=== PATIENT | female | born 1945 | race Caucasian/White ===

== ENCOUNTER 2018-11-29 11:44 | Inpatient (IN) ==
[2018-11-29] MEDS ORDERED: Tetanus/Diphtheria Toxoid Adult Vaccine Inj 0.5 ML Vial IM ONE (11:54)
--- NOTE | 2018-11-29 12:31 | ED ---
HPI General Chief Complaint: Fall Stated Complaint: fall/evac Time Seen by Provider: 11/29/18 11:51 Source: EMS Mode of arrival: EMS Limitations: no limitations History of Present Illness MD complaint: Reports fall Onset (ago): minute(s) Fall from: standing Fall witnessed: no Place fall occurred: street Loss of consciousness: yes Prolonged down time: no Symptoms prior to fall: Reports none Context: Reports other (Unknown circumstances) Location of injury: Reports head Associated symptoms (after fall): Reports other Related Data Home Medications Medication Instructions Recorded Confirmed citalopram [Celexa] 10 mg PO QPM 11/29/18 11/29/18 fluticasone [Flonase Allergy 1 spray INTRANASAL DAILY 11/29/18 11/29/18 Relief] levothyroxine 75 mcg PO DAILY 11/29/18 11/29/18 montelukast [Singulair] 10 mg PO QPM 11/29/18 11/29/18 omeprazole 40 mg PO BID 11/29/18 11/29/18 Allergies Allergy/AdvReac Type Severity Reaction Status Date / Time Penicillins Allergy Anaphylaxis Verified 11/29/18 11:50 Review of Systems ROS: all other systems reviewed are negative [facility] Medical History Medical History Hypothyroidism (Acute) Surgical History Surgical History H/O breast biopsy (Acute) Social History Social History Substance History: No History of Abuse Second Hand Smoke Exposure: No Smoking Status: Never smoker How Often Do You Have a Drink Containing Alcohol: Monthly or less Recent Travel in [facility] within the Last 8 Weeks: No Recent Out of Country Travel within the Last 8 Weeks: No Immunization History Tetanus Immunization: >5 Years Exam Const General: cooperative, healthy appearing and comfortable Orientation: alert, awake and oriented x3 HENMT Head: normocephalic and other (Large hematoma on the left forehead. She has some dried blood streaked across her forehead and face.) Eyes Alignment and Position: alignment normal Conjunctivae: conjunctivae normal Sclera: sclerae normal EOM: EOM intact bilaterally Neck Neck: normal visual inspection and full ROM Chest Chest: normal inspection of the chest Resp Effort & Inspection: normal respiratory effort and able to speak in complete sentences Back/Spine/Pelvis Cervical Spine: cervical ROM normal Thoracic/Lumbar Spine: thoraco-lumbar ROM normal Skin General: turgor normal and dry skin Neuro General: alert, awake, oriented x3, moves all extremities and CN's II-XI intact bilaterally Extrem General: normal to inspection and full ROM Psych Appearance: grossly normal Mental Status: mental status grossly normal Speech and Movement: speech and movement normal Mood: congruent mood Affect: normal affect Attitude: cooperative Thought Process: normal Thought Content: normal Judgment: judgment good Course Initial Documented Vital Signs Temperature 99.0 F 11/29/18 11:50 Pulse Rate 63 11/29/18 11:50 Respiratory Rate 18 11/29/18 11:50 Blood Pressure 168/89 H 11/29/18 11:50 Pulse Oximetry 95 11/29/18 11:50 Last Documented Vital Signs Temperature 99.0 F 11/29/18 11:50 Pulse Rate 63 11/29/18 11:50 Respiratory Rate 18 11/29/18 11:50 Blood Pressure 168/89 H 11/29/18 11:50 Pulse Oximetry 95 11/29/18 11:50 Critical Care Time Critical Care Time: Yes Total Critical Care Time: 30 Attestation: Time to perform other separately billable procedures was not included in the critical care time. My time did not include minutes spent treating any other patients simultaneously or on activities that did not directly contribute to the patient's treatment. The services I provided to this patient were to treat and/or prevent clinically significant deterioration due to a head injury with subarachnoid and intraparenchymal hemorrhage I provided critical care services requiring my management, as noted below: Chart data review, documentation time, medication orders and management, vital sign assessments/reviewing monitor data, ordering and reviewing lab tests, ordering and interpreting/reviewing x-rays and diagnostic studies, care of the patient and discussion of the patient with the admitting physicians Medical Decision Making MDM Narrative Medical decision making narrative: This patient presents to [facility] after suffering an obvious head injury. We do not know the circumstances of the fall. She was found outside with an injury to the left side of her forehead. She had a positive loss of consciousness. She has associated amnesia. She does not know the date of her last tetanus shot. The patient is now awake and alert and fully oriented. Her tetanus has been updated. A CT of her head and neck has been ordered. CT of the head does show subarachnoid and intraparenchymal blood. I have discussed the case with the neurosurgeon, Dr. Perera. He has reviewed the films. He has asked that I admit the patient to the trauma service. Medical Screen Exam Complete: Yes Emergency Medical Condition: Yes Differential Diagnosis Differential Diagnosis: My differential diagnosis of head trauma includes but is not limited to scalp contusion, concussion, intracerebral hemorrhage. Imaging Data Radiologist's impression: Cervical Spine CT 11/29/18 11:54 CONCLUSION: 1. No evidence of fracture. Diffuse degenerative changes. Head CT 11/29/18 11:54 CONCLUSION: 1. Abnormal exam with multiple areas of subarachnoid hemorrhage as noted above as well as intraparenchymal hemorrhage identified within the right temporal lobe. Currently no evidence of mass effect or midline shift. Short interval follow-up is recommended to evaluate for possible progression. No skull fracture seen. . . Discharge Plan Discharge Disposition Patient Disposition: ED Admit(ED Internal Use Only) Discharge Order Discharge Orders: ED Use Only Admit Order (Routine); Ordered 11/29/18 Ordered By: Chloé Shetty Discharge Details Diagnosis: Subarachnoid hemorrhage, Acute intracerebral hemorrhage Physicians Team ED Provider: Chloé Shetty Rxs /Orders / Referrals /Forms Prescriptions: No Action citalopram [Celexa] 10 mg Tablet 10 mg PO QPM RF: 0 levothyroxine 75 mcg Tablet 75 mcg PO DAILY RF: 0 omeprazole 40 mg Capsule,Delayed Release(Dr/Ec) 40 mg PO BID RF: 0 montelukast [Singulair] 10 mg Tablet 10 mg PO QPM RF: 0 fluticasone [Flonase Allergy Relief] 50 mcg/actuation [place],Suspension 1 spray INTRANASAL DAILY RF: 0 Discharge Interventions Interventions: Vital Signs Last Done: 11/29/18 12:02 Status ED Status: With Doctor
--- NOTE | 2018-11-29 12:48 | CT ---
EXAM DATE: 11/29/2018 12:43 PM EST AGE/SEX: 73 years / Female INDICATIONS: Head injury. Post fall. Trauma. CLINICAL DATA: This is the patient's initial encounter. Patient reports that signs and symptoms have been present for 1 day and indicates a pain score of 5/10. MEDICAL/SURGICAL HISTORY: . 0 . 0 RADIATION DOSE: 12.4 CTDI (mGy) COMPARISON: No prior exams available for comparison. TECHNIQUE: Contiguous axial images were obtained using helical multirow detector technique. The vol umetric data was post-processed with multiplanar reconstruction in oblique axial, sagittal, and coron al planes. Using automated exposure control and adjustment of the mA and/or kV according to patient s ize, radiation dose was kept as low as reasonably achievable to obtain optimal diagnostic quality aram ges. DICOM format image data is available electronically for review and comparison. FINDINGS: Vertebrae: Vertebral bodies are intact without evidence of fracture. Vertebral height is maintained. Alignment: There is slight retrolisthesis of C3 on C4 and again at C4 on C5. Degenerative changes are seen throughout the cervical spine within the region of the facet joints and uncovertebral joints. Multiple levels of neural foraminal stenosis. No significant spinal canal sten osis. CONCLUSION: 1. No evidence of fracture. Diffuse degenerative changes. Electronically signed by: Edith Shepard MD Board Certified Radiologist 11/29/2018 12:46 PM EST
--- NOTE | 2018-11-29 12:51 | CT ---
EXAM DATE: 11/29/2018 12:43 PM EST AGE/SEX: 73 years / Female INDICATIONS: Head injury. Post fall. Trauma. CLINICAL DATA: This is the patient's initial encounter. Patient reports that signs and symptoms have been present for 1 day and indicates a pain score of 5/10. MEDICAL/SURGICAL HISTORY: . 0 . 0 RADIATION DOSE: 56.35 CTDI (mGy) COMPARISON: No prior exams available for comparison. TECHNIQUE: CT of the head without contrast. Using automated exposure control and adjustment of the mA and/or kV according to patient size, radiation dose was kept as low as reasonably achievable to ob tain optimal diagnostic quality images. DICOM format image data is available electronically for revi ew and comparison. FINDINGS: Cerebrum: The cerebrum is significant for multiple areas of curvilinear subarachnoid high attenuatio n consistent with hemorrhage. This is seen within the right frontal lobe, left frontal lobe, diffusel y within the left temporal and parietal lobe. There is an area of intraparenchymal hemorrhage identif ied within the right temporal lobe. No evidence of mass effect or midline shift. Posterior Fossa: The cerebellum and brainstem are intact. The 4th ventricle is midline. The cerebe llopontine angle is unremarkable. Extracranial: Focal soft tissue edema and hemorrhage overlying the left frontal lobe. Skull: The calvaria is intact. No evidence of skull fracture. CONCLUSION: 1. Abnormal exam with multiple areas of subarachnoid hemorrhage as noted above as well as intraparen chymal hemorrhage identified within the right temporal lobe. Currently no evidence of mass effect or midline shift. Short interval follow-up is recommended to evaluate for possible progression. No skull fracture seen. . . Electronically signed by: Edith Shepard MD Board Certified Radiologist 11/29/2018 12:49 PM EST
[2018-11-29] MEDS ORDERED: Acetaminophen 325 MG Tablet PO PRN (13:34)
[2018-11-29] MEDS ORDERED: Naloxone Inj 0.4 MG/ML Vial IV.PUSH PRN (13:34)
[2018-11-29] MEDS ORDERED: Bisacodyl 10 MG Supp RECTAL PRN (13:34)
[2018-11-29] MEDS ORDERED: Post-op Orders (for Pharmacy) OTHER ONE (13:34)
--- NOTE | 2018-11-29 15:43 | P.CONNS ---
History of Present Illness Service: Neurosurgery Consult date: 11/29/18 Requesting Physician: Luisa Mora Reason for Consult: TBI Primary Care Provider: Sanjana Knox Chief Complaint: SAH from fall History of Present Illness: 73yo F who was leaving a friend's garage sale today and apparently had an unwitnessed fall. She does not remember falling and is amnestic until waking up here in the Emergency Department. She had no known seizure, etc. Other than pain from striking her left frontal region, she has no complaints at present. She had a CT Head which revealed some scattered subarachnoid hemorrhage. Neurosurgery asked to assess. [facility] - History History Provided By: Patient - Medical History Medical History: Medical History (Last Reviewed 11/29/18 @ 12:28 by Chloé Shetty) Hypothyroidism - Surgical History Surgical History: Surgical History (Last Reviewed 11/29/18 @ 12:28 by Chloé Shetty) H/O breast biopsy - Tobacco History Second Hand Smoke Exposure: No Smoking Status: Never smoker - Alcohol History How Often Do You Have a Drink Containing Alcohol: Monthly or less - Substance Use History Substance History: No History of Abuse - Travel History Recent Travel in the [place] Within the Last 8 Weeks: No Recent Travel Out of the Country Within the Last 8 Weeks: No - Immunization History Tetanus Immunization: >5 Years Medications and Allergies Active Medications: Active Medications Acetaminophen (Tylenol) 650 mg PO Q6HR PRN PRN Reason: Pain Scale > 3 Al Hydroxide/Mg Hydroxide (Milk Of Magnesia Liq) 30 ml PO Q12H PRN PRN Reason: Mild Constipation Bisacodyl (Dulcolax Supp) 10 mg RECTAL DAILY PRN PRN Reason: SEVERE CONSITIPATION Citalopram Hydrobromide (Celexa) 10 mg PO DAILY@1800 [facility] Fluticasone Propionate (Flonase Nasal [place]) 1 spray EACH NARE DAILY [facility] Sodium Chloride (Ns Inj) 1,000 mls @ 84 mls/hr IV.CONT .[id number] [facility] Levetiracetam 500 mg/ Sodium (Chloride) 105 mls @ 400 mls/hr IV.SIG Q12H [facility] Last Admin: 11/29/18 14:49 Dose: 400 mls/hr Lactulose (Lactulose Liq) 30 ml PO DAILY PRN PRN Reason: SEVERE CONSITIPATION Levothyroxine Sodium (Synthroid) 75 mcg PO DAILY@0600 [facility] Montelukast Sodium (Singulair) 10 mg PO DAILY@1800 [facility] Naloxone HCl (Narcan Inj) 0.4 mg IV.PUSH UNSCH PRN PRN Reason: SEE LABEL COMMENTS Ondansetron HCl (Zofran Inj) 4 mg IV.PUSH Q6H PRN PRN Reason: NAUSEA OR VOMITING Pantoprazole Sodium (Protonix) 40 mg PO DAILY [facility] Senna/Docusate Sodium (Pushpa-Colace) 1 tab PO BID [facility] Sennosides (Senokot) 17.2 mg PO Q12H PRN PRN Reason: Moderate Constipation Allergies Allergy/AdvReac Type Severity Reaction Status Date / Time Penicillins Allergy Anaphylaxis Verified 11/29/18 11:50 Home Medications Medication Instructions Recorded Confirmed Type citalopram [Celexa] 10 mg PO QPM 11/29/18 11/29/18 History fluticasone [Flonase Allergy 1 spray INTRANASAL DAILY 11/29/18 11/29/18 History Relief] levothyroxine 75 mcg PO DAILY 11/29/18 11/29/18 History montelukast [Singulair] 10 mg PO QPM 11/29/18 11/29/18 History omeprazole 40 mg PO BID 11/29/18 11/29/18 History Exam Vital signs: Vital Signs 11/29/18 11:50 11/29/18 13:30 Temperature 99.0 F Pulse Rate 63 68 Respiratory Rate 18 16 Blood Pressure 168/89 H 160/87 H Pulse Oximetry 95 99 Intake & Output 11/28/18 11/29/18 11/29/18 18:59 06:59 18:59 Weight 61.689 kg - Routine Neurological Exam Alert, conversant Oriented to person, thought she was in the [facility], and 2011 Speech fluent Naming & repetition intact Pupils equal EOMI, though swollen L orbit precludes full range there Face symmetric accounting for edema Tongue midline Full shrug & head turn bilaterally No pain or tenderness in C-spine (already cleared by ER) 02/01 x 4 No drift FNF without ataxia or dysmetria SILT x 4 Results - Diagnostic Findings Additional findings: CT Head: scattered bilateral traumatic subarachnoid hemorrhage over both convexities as well as in the right ambient cistern. The total amount of blood is small and the pattern is more typical for trauma than aneurysmal origin. There may be a parenchymal contusion to the R temporal lobe but this may be additional SAH in a sulcus. Assessment and Plan - Plan 73yo F s/p unwitnessed fall with intracranial blood consistent with head trauma and external signs of trauma. - No surgical intervention required - Pt already started on Keppra in ER; this is not strongly indicated as GCS 15 does not fall into the category of "severe" TBI but could continue to mitigate any possible early seizure risk - Recommend workup for typical causes of syncope (arrhythmia, metabolic abnormality, orthostasis, etc) per primary team - No plan for neurosurgical followup as long as pt remains stable Neurosurgery will sign off. Please re-consult if any neurologic changes or questions. Discussed all of the above with patient and she is in agreement.
--- NOTE | 2018-11-29 17:46 | P.CONCC ---
History of Present Illness Service: Critical care medicine Consult date: 11/29/18 Reason for Consult: Closed head injury Primary Care Provider: Sanjana Knox Chief Complaint: SAH from fall History of Present Illness: This 73-year-old woman from [facility] was up visiting her in-laws and helping with a garage sale earlier today. She is amnesic for the event and short time afterward, but bystanders say the fall was not witnessed. She sustained blunt trauma to the left periorbital region and was brought to the emergency department by EMS. CAT scan of the head reveals faint subarachnoid blood bilaterally. There is no skull fracture. When I walk in the room to meet her she is conversant and speech is clear. She is alert and cooperative. There is no history of arrhythmia or syncope. The patient's memory for past events is quite clear including hometown, high school, trip to here from [facility]. No anticoagulants. Review of Systems She does not have a headache at present. There is no chest pain or shortness of breath. There is no nausea vomiting or tremor. [facility] - History History Provided By: Patient - Medical History Medical History: Medical History (Last Reviewed 11/29/18 @ 12:28 by Chloé Shetty) Hypothyroidism - Surgical History Surgical History: Surgical History (Last Reviewed 11/29/18 @ 12:28 by Chloé Shetty) H/O breast biopsy - Tobacco History Second Hand Smoke Exposure: No Smoking Status: Never smoker - Alcohol History How Often Do You Have a Drink Containing Alcohol: Monthly or less - Substance Use History Substance History: No History of Abuse - Travel History Recent Travel in the [facility] Within the Last 8 Weeks: No Recent Travel Out of the Country Within the Last 8 Weeks: No - Immunization History Tetanus Immunization: >5 Years Medications and Allergies Active Medications: Active Medications Acetaminophen (Tylenol) 650 mg PO Q6HR PRN PRN Reason: Pain Scale > 3 Al Hydroxide/Mg Hydroxide (Milk Of Magnesia Liq) 30 ml PO Q12H PRN PRN Reason: Mild Constipation Bisacodyl (Dulcolax Supp) 10 mg RECTAL DAILY PRN PRN Reason: SEVERE CONSITIPATION Citalopram Hydrobromide (Celexa) 10 mg PO DAILY@1800 [facility] Fluticasone Propionate (Flonase Nasal [place]) 1 spray EACH NARE DAILY [facility] Sodium Chloride (Ns Inj) 1,000 mls @ 84 mls/hr IV.CONT .[id number] [facility] Levetiracetam 500 mg/ Sodium (Chloride) 105 mls @ 400 mls/hr IV.SIG Q12H [facility] Last Infusion: 11/29/18 15:52 Dose: Infused Lactulose (Lactulose Liq) 30 ml PO DAILY PRN PRN Reason: SEVERE CONSITIPATION Levothyroxine Sodium (Synthroid) 75 mcg PO DAILY@0600 [facility] Montelukast Sodium (Singulair) 10 mg PO DAILY@1800 [facility] Naloxone HCl (Narcan Inj) 0.4 mg IV.PUSH UNSCH PRN PRN Reason: SEE LABEL COMMENTS Ondansetron HCl (Zofran Inj) 4 mg IV.PUSH Q6H PRN PRN Reason: NAUSEA OR VOMITING Pantoprazole Sodium (Protonix) 40 mg PO DAILY [facility] Senna/Docusate Sodium (Pushpa-Colace) 1 tab PO BID [facility] Sennosides (Senokot) 17.2 mg PO Q12H PRN PRN Reason: Moderate Constipation Allergies Allergy/AdvReac Type Severity Reaction Status Date / Time Penicillins Allergy Anaphylaxis Verified 11/29/18 11:50 Home Medications Medication Instructions Recorded Confirmed Type citalopram [Celexa] 10 mg PO QPM 11/29/18 11/29/18 History fluticasone [Flonase Allergy 1 spray INTRANASAL DAILY 11/29/18 11/29/18 History Relief] levothyroxine 75 mcg PO DAILY 11/29/18 11/29/18 History montelukast [Singulair] 10 mg PO QPM 11/29/18 11/29/18 History omeprazole 40 mg PO BID 11/29/18 11/29/18 History Physical Exam Vital signs: Vital Signs 11/29/18 11:50 11/29/18 13:30 11/29/18 16:19 Temperature 99.0 F Pulse Rate 63 68 75 Respiratory Rate 18 16 16 Blood Pressure 168/89 H 160/87 H 164/67 H Pulse Oximetry 95 99 98 11/29/18 16:45 Temperature Pulse Rate 68 Respiratory Rate 18 Blood Pressure 162/68 H Pulse Oximetry Intake & Output 11/28/18 11/29/18 11/29/18 18:59 06:59 18:59 Intake Total 105 / 105 Balance 105 / 105 Weight 61.689 kg Intake: IV 105 / 105 Keppra Inj 500 MG In NS Inj 100 105 / 105 ML @ 400 mls/hr IV.SIG Q12H [facility] Rx#:[id number] Narrative: General: Alert, conversant, cooperative, calm Head: Considerable left-sided periorbital edema with ecchymosis partially obscuring lateral left lid opening Neck: Supple, airway widely patent, no tenderness to motion. Lungs: Clear bilaterally without wheezes or crackles, comfortable respiratory pattern Heart: Normal S1-S2, regular rate and rhythm, soft systolic murmur heard over apex. Abdomen: Soft, nondistended, nontender, no guarding, bowel sounds active Extremities: Warm, well-perfused, no deformity. Neuro: Right-handed. Speech clear. No trouble finding words. She knows her name and her present address. She has good memory for all events prior to the fall. She is amnesic for the fall and most events afterward. She does not remember having the CAT scan or meeting the neurosurgeon. She does not remember the trip to the emergency department. PERRL, EOMs intact, tongue protrusion midline; smile, grimace, jaw clench symmetrical, shoulder shrug symmetrical. Smell not checked. Bilateral patellar deep tendon reflexes 3++ and equal. No ankle clonus and toes downgoing bilaterally. Hand grasps 5/5 bilaterally. All 4 limbs 5/5 power. Assessment and Plan - Problem List (1) Traumatic subarachnoid hemorrhage Code(s): S06.6X9A - Traumatic subarachnoid hemorrhage with loss of consciousness of unspecified duration, initial encounter Status: Acute (2) Hypothyroidism Code(s): E03.9 - Hypothyroidism, unspecified Status: Chronic - Assessment and Plan Plan: Plan: 1. Head of bed elevated 30 degrees 2. Fall precautions 3. Pepcid for GI ulcer prophylaxis 4. No chemical DVT prophylaxis 5. SCDs 6. Tylenol for headache pain 7. Serial neurologic checks 8. Repeat head CT after 24 hours, sooner for mental status change Overall impression: This woman has sustained significant blunt head trauma with bilateral subarachnoid blood. She will require close monitoring tonight and a syncope evaluation. (1) Traumatic subarachnoid hemorrhage Qualifiers: Encounter type: initial encounter Loss of consciousness presence/duration: with LOC of 30 min or less Qualified Code(s): S06.6X1A - Traumatic subarachnoid hemorrhage with loss of consciousness of 30 minutes or less, initial encounter
[2018-11-29] MEDS ORDERED: Citalopram 20 MG Tablet PO SCH (18:00)
[2018-11-29] MEDS ORDERED: Montelukast 10 MG Tablet PO SCH (18:00)
[2018-11-29] MEDS: Sod Chloride 0.9% Inj 1,000 ML IV.CONT SCH (18:49)
[2018-11-29] MEDS: Senna/Docusate Sodium 8.6/50 MG Tablet PO SCH (20:40)
--- NOTE | 2018-11-29 23:28 | MH ---
cc: Luisa Mora MD DATE OF ADMISSION: 11/29/2018 ADMITTING PHYSICIAN: Luisa Mora MD. CHIEF COMPLAINT: Surgery trauma. HISTORY OF PRESENT ILLNESS: This 73-year-old female, appearing much younger than actual age, was shopping in some garage sale. An unwitnessed fall. Does not remember the accident. The patient was apparently transferred to our institution as a ____ trauma alert. CT scan revealed some intraparenchymal hemorrhage and hence the admission. PAST MEDICAL HISTORY: Hypothyroidism. PAST SURGICAL: Breast biopsies. Otherwise, the patient is healthy. SOCIAL HISTORY: Never smoked. Drinks socially only. PHYSICAL EXAMINATION: GENERAL: Shows pleasant 73-year-old lady in no acute distress. HEENT: Normocephalic. No trauma to the head. Pupils equal and reactive. Extraocular muscles intact. A small abrasion over the left lateral canthus of the eye. Oral cavity intact. NECK: Bilateral carotid pulses. No bruits. CHEST: Clear bilateral breath sounds. HEART: Regular rate and rhythm. ABDOMEN: Soft. Active bowel sounds. No rebound or guarding. No masses. No signs of trauma to the chest, abdomen, or pelvis. EXTREMITIES: This patient with good proximal and distal pulses. No vascular deficit. BACK: Normal. IMPRESSION AND PLAN: The patient with isolated subarachnoid intraparenchymal bleeds in left frontal temporoparietal area on the convexity of the brain, as well as right frontal area. The patient on the arrival is awake and alert. Remained so, but is amnestic to the events. The patient will be worked up for syncope as well. Placed in the ICU. CRITICAL CARE TIME: 33 minutes. MD MARCUS Flores/maribel/preeti , 10:51 PM , 10:56 PM
[2018-11-30 05:10] LABS: Baso % (Auto) 0.5 % (0.0-2.0); Eos # (Auto) 0.2 th/mm3 (0.0-0.4); Eos % (Auto) 3.3 % (0.0-4.0); Hematocrit 38.6 % (35.0-46.0); Hemoglobin 13.6 gm/dL (11.6-15.3); Lymph # (Auto) 1.5 th/mm3 (1.0-4.8); Lymph % (Auto) 23.2 % (9.0-44.0); Mean Corpuscular HGB Conc 35.3 % (32.0-36.0); Mean Corpuscular Hemoglobin 32.6 pg (27.0-34.0); Mean Corpuscular Volume 92.3 fL (80.0-100.0); Mean Platelet Volume 8.5 fL (7.0-11.0); Mono # (Auto) 0.7 th/mm3 (0.0-0.9); Mono % (Auto) 10.1 % (0.0-8.0); Neut # (Auto) 4.1 th/mm3 (1.8-7.7); Neut % (Auto) 62.9 % (16.0-70.0); Platelet Count 185 th/mm3 (150-450); Red Blood Count 4.18 mil/mm3 (4.00-5.30); Red Cell Distribution Width 13.2 % (11.6-17.2); White Blood Count 6.6 th/mm3 (4.0-11.0)
[2018-11-30 05:35] LABS: Anion Gap 6 meq/L (5-15); Blood Urea Nitrogen 8 mg/dL (7-18); Calcium 8.2 mg/dL (8.5-10.1); Chloride 109 meq/L (98-107); Glomerular Filtration Rate Greater Than 89 mL/min (>89); Glucose,Random 84 mg/dL (74-106); Potassium 3.1 meq/L (3.5-5.1); Sodium 144 meq/L (136-145)
[2018-11-30] MEDS ORDERED: Levothyroxine 75 MCG Tablet PO SCH (06:00)
[2018-11-30] MEDS: Sod Chloride 0.9% Inj 1,000 ML IV.CONT SCH ×2 (06:02→14:18)
[2018-11-30] MEDS: Senna/Docusate Sodium 8.6/50 MG Tablet PO SCH (08:38)
--- NOTE | 2018-11-30 08:57 | P.PNCC ---
Subjective Subjective Remarks/Hospital Course: This 73-year-old woman from [facility] was up visiting her in-laws and helping with a garage sale earlier today. She is amnesic for the event and short time afterward, but bystanders say the fall was not witnessed. She sustained blunt trauma to the left periorbital region and was brought to the emergency department by EMS. CAT scan of the head reveals faint subarachnoid blood bilaterally. There is no skull fracture. When I walk in the room to meet her she is conversant and speech is clear. She is alert and cooperative. There is no history of arrhythmia or syncope. The patient's memory for past events is quite clear including hometown, high school, trip to here from [facility]. No anticoagulants. 11/30: Seems wobbly this morning while walking with assistance. Speech is clear. No significant neurologic changes. Objective Vital Signs / I&O: Vital Signs 11/29/18 11:50 11/29/18 13:30 11/29/18 16:19 Temperature 99.0 F Pulse Rate 63 68 75 Respiratory Rate 18 16 16 Blood Pressure 168/89 H 160/87 H 164/67 H Pulse Oximetry 95 99 98 11/29/18 16:45 11/29/18 17:15 11/29/18 17:20 Temperature Pulse Rate 68 75 68 Respiratory Rate 18 18 29 H Blood Pressure 162/68 H 139/90 Pulse Oximetry 98 11/29/18 18:00 11/29/18 19:00 11/29/18 20:00 Temperature 98.2 F Pulse Rate 63 73 75 Respiratory Rate 23 31 H 23 Blood Pressure Pulse Oximetry 97 96 96 11/29/18 20:12 11/29/18 21:00 11/29/18 21:58 Temperature Pulse Rate 71 68 73 Respiratory Rate 24 25 H 34 H Blood Pressure 137/78 130/77 Pulse Oximetry 96 98 97 11/29/18 22:00 11/29/18 22:02 11/29/18 22:03 Temperature Pulse Rate 65 73 Respiratory Rate 21 Blood Pressure 123/71 Pulse Oximetry 98 11/29/18 23:00 11/30/18 00:00 11/30/18 01:00 Temperature 98.1 F Pulse Rate 66 69 65 Respiratory Rate 17 17 Blood Pressure 108/60 119/63 122/76 Pulse Oximetry 97 96 95 11/30/18 02:00 11/30/18 03:00 11/30/18 04:00 Temperature Pulse Rate 62 59 L 60 Respiratory Rate 17 Blood Pressure 113/62 126/71 110/66 Pulse Oximetry 97 95 96 11/30/18 05:00 11/30/18 06:00 11/30/18 07:00 Temperature Pulse Rate 64 64 66 Respiratory Rate 12 Blood Pressure 123/59 L 129/74 123/67 Pulse Oximetry 96 96 96 Intake & Output 11/29/18 11/30/18 11/30/18 18:59 06:59 18:59 Intake Total 105 / 105 1305 / 1305 Balance 105 / 105 1305 / 1305 Weight 61.689 kg 61.689 kg Intake: IV 105 / 105 1105 / 1105 NS Inj 1,000 ML @ 84 mls/hr IV. 1000 / 1000 CONT .[id number] HUSSEIN Rx#:[id number] Keppra Inj 500 MG In NS Inj 100 105 / 105 105 / 105 ML @ 400 mls/hr IV.SIG Q12H HUSSEIN Rx#:[id number] Oral 200 / 200 Other: # Voids 3 Result Diagrams: 11/30/18 04:30 11/30/18 04:30 Objective Remarks: Narrative: General: Alert, conversant, cooperative, calm Head: Increased left-sided periorbital edema with ecchymosis partially obscuring lateral left lid opening Neck: Supple, airway widely patent, no tenderness to motion. Lungs: Clear bilaterally without wheezes or crackles, comfortable respiratory pattern. Strong cough effort. Heart: Normal S1-S2, regular rate and rhythm, soft systolic murmur heard over apex. Abdomen: Soft, nondistended, nontender, no guarding, bowel sounds active Extremities: Warm, well-perfused, no deformity. Neuro: Right-handed. Speech clear. No trouble finding words. She knows her name and her present address. She has good memory for all events prior to the fall. She is amnesic for the fall and most events afterward. Cranial nerves II through XII intact. Bilateral patellar deep tendon reflexes 3++ and equal. No ankle clonus and toes downgoing bilaterally. Hand grasps 5/5 bilaterally. All 4 limbs 5/5 power. Assessment and Plan - Problem List (1) Traumatic subarachnoid hemorrhage Code(s): S06.6X9A - Traumatic subarachnoid hemorrhage with loss of consciousness of unspecified duration, initial encounter Status: Acute (2) Hypothyroidism Code(s): E03.9 - Hypothyroidism, unspecified Status: Chronic - Assessment and Plan Plan: Plan: 1. Head of bed elevated 30 degrees 2. Fall precautions 3. Pepcid for GI ulcer prophylaxis 4. No chemical DVT prophylaxis 5. SCDs 6. Tylenol for headache pain 7. Serial neurologic checks 8. Repeat head CT after 24 hours, sooner for mental status change 9. Mobilize with physical therapy 10. Evaluate for short-term rehab stay 11. Ongoing syncope evaluation Overall impression: This woman has sustained significant blunt head trauma with bilateral subarachnoid blood. She will require close monitoring tonight and a syncope evaluation. (1) Traumatic subarachnoid hemorrhage Qualifiers: Encounter type: initial encounter Loss of consciousness presence/duration: with LOC of 30 min or less Qualified Code(s): S06.6X1A - Traumatic subarachnoid hemorrhage with loss of consciousness of 30 minutes or less, initial encounter
--- NOTE | 2018-11-30 11:25 | CT ---
EXAM DATE: 11/30/2018 11:00 AM EST AGE/SEX: 73 years / Female INDICATIONS: Follow-up subarachnoid hemorrhage x 1 day. CLINICAL DATA: This is the patient's subsequent encounter. Patient reports that signs and symptoms h ave been present for 1 day and indicates a pain score of 2/10. MEDICAL/SURGICAL HISTORY: Hypothyroidism. . Breast biopsy. RADIATION DOSE: 48.28 CTDI (mGy) COMPARISON: [facility], CT HEAD W/O CONTRAST, 11/29/2018. . TECHNIQUE: CT of the head without contrast. Using automated exposure control and adjustment of the mA and/or kV according to patient size, radiation dose was kept as low as reasonably achievable to ob tain optimal diagnostic quality images. DICOM format image data is available electronically for revi ew and comparison. FINDINGS: Cerebrum: The ventricles are normal for age. No evidence of midline shift, mass lesion or acute inf arction there has been resolution of the parenchymal hemorrhage identified within the right temporal lobe and only a trace focus of hemorrhage identified at the level of the right suprasellar cistern an d a small focus of residual hemorrhage identified within the subarachnoid space of the right frontal lobe. The hemorrhage previously seen within the left frontal lobe and throughout the subarachnoid [place] of the left parietal lobe has resolved. Posterior Fossa: The cerebellum and brainstem are intact. The 4th ventricle is midline. The cerebe llopontine angle is unremarkable. Extracranial: The visualized portion of the orbits is intact. Skull: The calvaria is intact. No evidence of skull fracture. CONCLUSION: 1. Resolving subarachnoid hemorrhage and intraparenchymal hemorrhage. No evidence of edema or efface ment of the sulci or cisterns. . . Electronically signed by: Edith Shepard MD Board Certified Radiologist 11/30/2018 11:23 AM EST
--- NOTE | 2018-11-30 11:46 | P.PNCC ---
Subjective Brief History: Patient fell under unknown circumstances does not remember the event The patient with isolated subarachnoid intraparenchymal bleeds in left frontal temporoparietal area on the convexity of the brain, as well as right frontal area. The patient on the arrival is awake and alert. Remained so , but is amnestic to the events. The patient will be worked up for syncope as well. Placed in the ICU. 24 Hour Review/Hospital Course: 11/30/2018 Patient is awake alert and oriented She has good memory of events preceding the fall as well as distant events from last week and further back. The only thing remains is a short memory loss for the syncope itself. Motorically fully intact Sensory preserved Chana Coma Scale 15 Hemodynamically remained stable Bilateral good breath sounds good pulmonary function and effort Renal function preserved Discharge patient today discussed with patient and her We will keep on Keppra for about a week and patient can follow-up with specialists of [facility] where she lives Objective Vital Signs / I&O: Vital Signs 11/29/18 11:50 11/29/18 13:30 11/29/18 16:19 Temperature 99.0 F Pulse Rate 63 68 75 Respiratory Rate 18 16 16 Blood Pressure 168/89 H 160/87 H 164/67 H Pulse Oximetry 95 99 98 11/29/18 16:45 11/29/18 17:15 11/29/18 17:20 Temperature Pulse Rate 68 75 68 Respiratory Rate 18 18 29 H Blood Pressure 162/68 H 139/90 Pulse Oximetry 98 11/29/18 18:00 11/29/18 19:00 11/29/18 20:00 Temperature 98.2 F Pulse Rate 63 73 75 Respiratory Rate 23 31 H 23 Blood Pressure Pulse Oximetry 97 96 96 11/29/18 20:12 11/29/18 21:00 11/29/18 21:58 Temperature Pulse Rate 71 68 73 Respiratory Rate 24 25 H 34 H Blood Pressure 137/78 130/77 Pulse Oximetry 96 98 97 11/29/18 22:00 11/29/18 22:02 11/29/18 22:03 Temperature Pulse Rate 65 73 Respiratory Rate 21 Blood Pressure 123/71 Pulse Oximetry 98 11/29/18 23:00 11/30/18 00:00 11/30/18 01:00 Temperature 98.1 F Pulse Rate 66 69 65 Respiratory Rate 17 17 Blood Pressure 108/60 119/63 122/76 Pulse Oximetry 97 96 95 11/30/18 02:00 11/30/18 03:00 11/30/18 04:00 Temperature Pulse Rate 62 59 L 60 Respiratory Rate 17 Blood Pressure 113/62 126/71 110/66 Pulse Oximetry 97 95 96 11/30/18 05:00 11/30/18 06:00 11/30/18 07:00 Temperature Pulse Rate 64 64 66 Respiratory Rate 12 Blood Pressure 123/59 L 129/74 123/67 Pulse Oximetry 96 96 96 Intake & Output 11/29/18 11/30/18 11/30/18 18:59 06:59 18:59 Intake Total 105 / 105 1305 / 1305 Balance 105 / 105 1305 / 1305 Weight 61.689 kg 61.689 kg Intake: IV 105 / 105 1105 / 1105 NS Inj 1,000 ML @ 84 mls/hr IV. 1000 / 1000 CONT .[id number] HUSSEIN Rx#:[id number] Keppra Inj 500 MG In NS Inj 100 105 / 105 105 / 105 ML @ 400 mls/hr IV.SIG Q12H HUSSEIN Rx#:[id number] Oral 200 / 200 Other: # Voids 3 Result Diagrams: 11/30/18 04:30 11/30/18 04:30 Imaging: Impressions Cervical Spine CT 11/29/18 11:54 CONCLUSION: 1. No evidence of fracture. Diffuse degenerative changes. Head CT 11/29/18 11:54 CONCLUSION: 1. Abnormal exam with multiple areas of subarachnoid hemorrhage as noted above as well as intraparenchymal hemorrhage identified within the right temporal lobe. Currently no evidence of mass effect or midline shift. Short interval follow-up is recommended to evaluate for possible progression. No skull fracture seen. . . Head CT 11/30/18 09:57 CONCLUSION: 1. Resolving subarachnoid hemorrhage and intraparenchymal hemorrhage. No evidence of edema or effacement of the sulci or cisterns. . . Disinhibition Score: 14.00 Aggression Score: 14.00 Lability Score: 14.00 Agitated Behavior Total Score: 14 Assessment and Plan Attestation: Critical care 33 minutes
--- NOTE | 2018-11-30 13:15 | US ---
EXAM DATE: 11/30/2018 12:27 PM EST AGE/SEX: 73 years / Female INDICATIONS: Syncope. CLINICAL DATA: This is the patient's initial encounter. Patient reports that signs and symptoms have been present for 2 days and indicates a pain score of 1/10. MEDICAL/SURGICAL HISTORY: Hypothyroidism. Breast biopsy. COMPARISON: No prior exams available for comparison. VELOCITY PARAMETERS: ICA/CCA Ratio: Right 2.0 , Left 1.2 ICA: Right 88 cm/sec, Left 69 cm/sec CCA: Right 44 cm/sec, Left 54 cm/sec ECA: Right 58 cm/sec, Left 72 cm/sec Vertebral: Right 45 cm/sec antegrade, Left 41 cm/sec antegrade FINDINGS: Right Carotid: No significant plaque is visualized.The waveforms are within normal limits. Left Carotid: No significant plaque is visualized. The waveforms are within normal limits. Other: None. CONCLUSION: 1. Right Internal Carotid Artery: No significant stenosis or atherosclerotic plaque is visualized. 2. Left Internal Carotid Artery: No significant stenosis or atherosclerotic plaque is visualized. Electronically signed by: Edith Shepard MD Board Certified Radiologist 11/30/2018 1:14 PM EST
--- NOTE | 2018-11-30 14:10 | P.DS ---
Date of admission: 11/29/18 13:30 Primary care physician: Sanjana Knox Attending physician on discharge: Luisa Mora Anticipated date of discharge: 11/30/18 Brief History from admission: Fall. DS: Diagnosis - Discharge Diagnosis (1) Subarachnoid hemorrhage Status: Acute (2) Acute intracerebral hemorrhage Status: Acute (3) Traumatic subarachnoid hemorrhage Status: Acute (4) Hypothyroidism Status: Chronic DS: Medications - Discharge Medications Prescriptions: levetiracetam [Keppra] 500 mg PO BID 6 Days #12 tab DS: Summary Hospital Course: [place]: This is a 73-year-old female who sustained a fall. It was unwitnessed fall from standing position. Positive LOC. INJURIES; LEFT forehead hematoma -Dermabond SAH -multiple areas RIGHT TEMPORAL IPH PMHx: Hypothyroidism. Breast biopsy. Procedures: Consults: Neurosurgery. Case management. Patient alert and oriented. She really wants to go home. The patient is now tolerating a po diet. Eating and drinking well. Pain is being managed well with PO pain medications, patient may continue with OTC Tylenol for pain/headache. We have recommended to patient to continue with stool softeners while taking narcotic pain medications to prevent constipation. Pt has been participating in PT and OT while admitted at [facility] and has been ambulating with their assistance and independently. No home PT needs. All follow up appointments have been provided and discussed with the patient. It is recommended that the patient keeps all his follow up appointments for continued recovery. Patient's condition and plan of care discussed with collaborating trauma surgeon. He is agreeable to plan for discharge today. Therefore, the patient is stable to be safely discharged home from a trauma surgery standpoint. Thank you for allowing us to participate in her care. We wish Chad the best in her recovery. LEFT forehead hematoma -Dermabond SAH -multiple areas RIGHT TEMPORAL IPH Neurosurgery consulted and assisting in management care 3/3: Repeat CT brain shows Resolving subarachnoid hemorrhage and intraparenchymal hemorrhage. No evidence of edema or effacement of the sulci or cisterns Patient remains alert and oriented Serial neuro checks CT brain for any change in neurological status Supportive care Seizure precautions Seizure prophylaxis -Keppra Head of bed elevated [place] out of bed PT and OT ordered Bowel regimen SCDs for DVT prophylaxis Follow-up with neurosurgery outpatient Syncope Supportive care O2 nasal cannula as needed 3/3: Repeat CT brain shows Resolving subarachnoid hemorrhage and intraparenchymal hemorrhage. No evidence of edema or effacement of the sulci or cisterns Patient remains alert and oriented EKG stable Labs stable K equal -3.1 replacement with potassium 40 mEq x1 p.o. Magnesium = 1.9 BGM = 84 Carotid ultrasound -negative for any stenosis No further episodes of faintness, dizziness, or light headedness No chest pain, dyspnea, palpitations. VSS Limit narcotic use Follow-up with PCP outpatient Pre-existing condition Hypothyroidism Allergies Resume home medications Synthroid Celexa Flonase Singulair - Time Spent with Patient Total time spent providing and/or coordinating discharge services: Greater than 30 minutes Exam Vital signs: Vital Signs 11/29/18 16:19 11/29/18 16:45 11/29/18 17:15 Temperature Pulse Rate 75 68 75 Respiratory Rate 16 18 18 Blood Pressure 164/67 H 162/68 H Pulse Oximetry 98 11/29/18 17:20 11/29/18 18:00 11/29/18 19:00 Temperature Pulse Rate 68 63 73 Respiratory Rate 29 H 23 31 H Blood Pressure 139/90 Pulse Oximetry 98 97 96 11/29/18 20:00 11/29/18 20:12 11/29/18 21:00 Temperature 98.2 F Pulse Rate 75 71 68 Respiratory Rate 23 24 25 H Blood Pressure 137/78 130/77 Pulse Oximetry 96 96 98 11/29/18 21:58 11/29/18 22:00 11/29/18 22:02 Temperature Pulse Rate 73 65 Respiratory Rate 34 H Blood Pressure 123/71 Pulse Oximetry 97 11/29/18 22:03 11/29/18 23:00 11/30/18 00:00 Temperature 98.1 F Pulse Rate 73 66 69 Respiratory Rate 21 17 17 Blood Pressure 108/60 119/63 Pulse Oximetry 98 97 96 11/30/18 01:00 11/30/18 02:00 11/30/18 03:00 Temperature Pulse Rate 65 62 59 L Respiratory Rate Blood Pressure 122/76 113/62 126/71 Pulse Oximetry 95 97 95 11/30/18 04:00 11/30/18 05:00 11/30/18 06:00 Temperature Pulse Rate 60 64 64 Respiratory Rate 17 Blood Pressure 110/66 123/59 L 129/74 Pulse Oximetry 96 96 96 11/30/18 07:00 Temperature Pulse Rate 66 Respiratory Rate 12 Blood Pressure 123/67 Pulse Oximetry 96 Intake & Output 11/29/18 11/30/18 11/30/18 18:59 06:59 18:59 Intake Total 105 / 105 1305 / 1305 Balance 105 / 105 1305 / 1305 Weight 61.689 kg 61.689 kg Intake: IV 105 / 105 1105 / 1105 NS Inj 1,000 ML @ 84 mls/hr IV. 1000 / 1000 CONT .[id number] HUSSEIN Rx#:[id number] Keppra Inj 500 MG In NS Inj 100 105 / 105 105 / 105 ML @ 400 mls/hr IV.SIG Q12H HUSSEIN Rx#:[id number] Oral 200 / 200 Other: # Voids 3 Results Procedures completed during hospitalization: x Labs on day of discharge: Labs from last 24 hours 11/30/18 11/30/18 11/30/18 13:24 04:30 04:30 WBC RBC Hgb Hct MCV MCH MCHC RDW Plt Count MPV Neut % (Auto) Lymph % (Auto) [place] % (Auto) Eos % (Auto) Baso % (Auto) Neut # (Auto) Lymph # (Auto) [place] # (Auto) Eos # (Auto) Baso # (Auto) WBC Differential Differential Comment Sodium 144 Potassium 3.4 L 3.1 L Chloride 109 H Carbon Dioxide 29.0 Anion Gap 6 BUN 8 Creatinine 0.51 Estimated GFR Greater than 89 Random Glucose 84 Calcium 8.2 L Magnesium 1.9 11/30/18 04:30 WBC 6.6 RBC 4.18 Hgb 13.6 Hct 38.6 MCV 92.3 MCH 32.6 MCHC 35.3 RDW 13.2 Plt Count 185 MPV 8.5 Neut % (Auto) 62.9 Lymph % (Auto) 23.2 [place] % (Auto) 10.1 H Eos % (Auto) 3.3 Baso % (Auto) 0.5 Neut # (Auto) 4.1 Lymph # (Auto) 1.5 [place] # (Auto) 0.7 Eos # (Auto) 0.2 Baso # (Auto) 0.0 WBC Differential . Differential Comment Auto diff final Sodium Potassium Chloride Carbon Dioxide Anion Gap BUN Creatinine Estimated GFR Random Glucose Calcium Magnesium - Impressions ITS Impressions Cervical Spine CT 11/29/18 11:54 CONCLUSION: 1. No evidence of fracture. Diffuse degenerative changes. Carotid Doppler Study 11/30/18 00:00 CONCLUSION: 1. Right Internal Carotid Artery: No significant stenosis or atherosclerotic plaque is visualized. 2. Left Internal Carotid Artery: No significant stenosis or atherosclerotic plaque is visualized. Head CT 11/30/18 09:57 CONCLUSION: 1. Resolving subarachnoid hemorrhage and intraparenchymal hemorrhage. No evidence of edema or effacement of the sulci or cisterns. . . Discharge Plan - Discharge Disposition Patient Disposition: Discharge Home - Discharge Condition Condition: Stable - Discharge Order Discharge Orders: Discharge Order (Routine); Ordered 11/30/18 Ordered By: Aubree Nixon ED Use Only Admit Order (Routine); Ordered 11/29/18 Ordered By: Chloé Shetty - Discharge Details Anticipated Discharge Date: 11/30/18 Discharge Comment: MAY DC HOME if CT brain stable and Carotid US neg. - Physicians Team Attending Provider: Luisa Mora Other Providers: Lm Thomason MD ; Rolf Alba MD ; [employer] ; Mohit Gallardo MD ; Aubree Nixon ARNP ; Vishal Sanchez MD ; Pamela Hanna MD ; Kaye Zhao ARNP ; Luisa Mora MD ; Dorene Arias MD ; Naga Perera MD
[2018-11-30 14:13] VITALS: BP 109/61; RESP 14; TEMP 98.2; O2SAT 97
[2018-11-30 14:18] VITALS: PULSE 67
== END 2018-11-30 14:59 | disposition home or self-care (01) | DRG 87 ==
LOC: NEPD 11:44 → NEDA 13:30 → N03 17:02
PROVIDERS: ADMIT Surgery; ATTEND Surgery
CPT/HCPCS: 12011; 70450; 72125; 80048; 83735; 84132; 85025; 90471; 90702; 90714; 90718; 93880; 94150; 97163; 97166; 99291; C9238; J1953; J7030